=== PATIENT | female | born 1975 | race African-American/Black ===

== ENCOUNTER 2020-10-08 13:03 | Emergency (ER) | payer OTHER, SELFPAY ==
--- NOTE | 2020-10-08 13:17 | ED.SKABFB ---
HPI - Skin/Abscess/Foreign Bdy General Chief complaint: Skin/Abscess/Foreign Body Stated complaint: bump in nose Time Seen by Provider: 10/08/20 13:23 Source: patient and RN notes reviewed Mode of arrival: ambulatory Limitations: no limitations History of Present Illness HPI narrative: 45-year-old female presents with concern for a unusual area in her left nare. She reports several day history of this, denies any drainage, bleeding from the area. Denies any pain, reports it just feels unusual. She denies any recent upper respiratory symptoms, congestion, rhinorrhea. Denies any fever, decreased sense of smell. complaint: abscess/boil Related Data Home Medications Medication Instructions Recorded Confirmed albuterol sulfate [Ventolin HFA] 90 mcg INHALATION PRN PRN 10/08/20 10/08/20 allopurinol 100 mg PO DAILY 10/08/20 10/08/20 aspirin 81 mg PO DAILY 10/08/20 10/08/20 cholecalciferol (vitamin D3) 50 mcg PO DAILY 10/08/20 10/08/20 ferrous sulfate 325 mg PO DAILY 10/08/20 10/08/20 labetalol 200 mg PO DAILY 10/08/20 10/08/20 losartan 100 mg PO DAILY 10/08/20 10/08/20 metformin 1,000 mg PO DAILY 10/08/20 10/08/20 Allergies Allergy/AdvReac Type Severity Reaction Status Date / Time No Known Allergies Allergy Verified 10/08/20 13:24 Review of Systems Review of Systems: Narrative: CONSTITUTIONAL: Denies malaise, chills, sweats, or fever. EYES: Denies visual changes, redness, or discharge. ENT: Denies rhinorrhea, congestion, sinus pain, otalgia or sore throat. SKIN: Denies open skin, rash or itching. NEUROLOGIC: Denies headache. All systems reviewed & are unremarkable except as noted in HPI and below PMFSH Social History Social History Gender identity (if verbalized by the patient): Female Comments At time of signature, agree with nursing past medical, surgical, social and family history. There is no relevant family history pertinent to the presenting complaint Exam Narrative: Exam Narrative: GENERAL: Well-appearing, well-nourished, and in no acute distress. HEAD: Normocephalic, atraumatic. EYES: PERRLA, conjunctivae clear ENT: Nares patent, turbinates pink, no rhinorrhea or epistaxis; small white ulceration without drainage, edema, induration noted on the outer edge of the inside of the left nare. Mucous membranes moist. NECK: Supple. CHEST: No respiratory distress. Speaks in full sentences. HEART: Regular rate and rhythm. SKIN: Warm, dry, no rash. NEURO: Alert and oriented x3. PSYCH: Normal mood and affect Course Course Emergency Course: Patient is aware of diagnosis, understands and agrees to treatment plan. Anticipatory guidance given. Patient agrees to follow-up as directed and is aware of reasons to seek care at the emergency department. Portions of this record may have been created with voice recognition software Vital Signs Vital signs: Vital Signs Temperature 99.1 F 10/08/20 13:19 Pulse Rate 101 H 10/08/20 13:19 Respiratory Rate 16 10/08/20 13:19 Blood Pressure 177/105 H 10/08/20 13:19 Pulse Oximetry 98 10/08/20 13:19 Temperature 99.1 F 10/08/20 13:19 Pulse Rate 101 H 10/08/20 13:19 Respiratory Rate 16 10/08/20 13:19 Blood Pressure 177/105 H 10/08/20 13:19 Pulse Oximetry 98 10/08/20 13:19 Reviewed. Patient has history of hypertension, reports she has not been taking her medication. Patient Acacian regarding medication adherence MDM - Skin/Abscess/Foreign Bdy MDM Narrative Medical decision making narrative: Exam findings and imaging show no acute concerns or changes; patient is non-toxic appearing and is in no distress. Patient is appropriate for outpatient treatment and follow-up. Critical Care Time Critical Care Time Critical Care Time: No Discharge Plan Discharge Clinical Impression: Nasal ulcer Patient Disposition: Home, Self-Care Condition: Stable Additional Instructions: 1) Please follow-up with your primary care doctor if your sympt
[2020-10-08 13:19] VITALS: BP 177/105; PULSE 101; RESP 16; TEMP 37.3; O2SAT 98
== END 2020-10-08 13:35 | disposition home or self-care (01) ==
PROVIDERS: Emergency Provider Nurse Practitioner; PCP Internal Medicine Infectious Disease
DX: J34.0 Abscess, furuncle and carbuncle of nose (principal); E78.00 Pure hypercholesterolemia, unspecified; I10 Essential (primary) hypertension; J45.909 Unspecified asthma, uncomplicated; E11.9 Type 2 diabetes mellitus without complications
CPT/HCPCS: 99203; G0463

== ENCOUNTER 2021-11-13 17:15 | Emergency (ER) | payer BC, SELFPAY ==
--- NOTE | ~2021-11-13 | XR_ITS ---
XR cervical spine 4-5V DATE: 11/13/2021 17:49 INDICATION: Left neck pain. No injury. TECHNIQUE: AP, open-mouth, odontoid, lateral and swimmer views COMPARISON: None FINDINGS: There is straightening of cervical spine which may be due to muscle spasm. C1 and C2 are normally aligned and the odontoid process is intact. There is prominent anterior spurri ng at C2-3, C3-4 and C4-5, but the cervical interspaces are relatively well preserved. There is minimal anterolisthesis at C4-5. No fracture or dislocation or locked facet or prevertebral soft tissue swelling. The sella turcica is normal. IMPRESSION: Straightening of the cervical spine which may be due to muscle spasm Minimal anterolisthesis at C4-5 Prominent anterior spurring in the upper and mid cervical spine Reviewed, dictated and finalized at location A. DOCUMENTATION IMPRESSION: Straightening of the cervical spine which may be due to muscle spas m Minimal anterolisthesis at C4-5 Prominent anterior spurring in the upper and mid cervical spine
[2021-11-13 17:28] VITALS: BP 166/88; PULSE 101; RESP 16; TEMP 36.7; O2SAT 100
--- NOTE | 2021-11-13 17:28 | ED.GENADULT ---
HPI - General Adult General Chief complaint: Neck Pain/Injury Stated complaint: neck pain Time Seen by Provider: 11/13/21 17:28 Source: patient, RN notes reviewed and old records reviewed Mode of arrival: ambulatory Limitations: no limitations History of Present Illness HPI narrative: 46 year old female presents to [facility] care with complaints of 3 week duration of left sided neck pain with no known injury or trauma known. Patient states that her discomfort is intermittent, she has associated headache at times with neck pain, denies any radiation of pain to left arm or any tingling or numbness to left extremity or face. Patient reports no prior treatment for her neck pain. MD complaint: neck pain Onset (ago): week(s) (3) Related Data Home Medications Medication Instructions Recorded Confirmed albuterol sulfate [Ventolin HFA] 90 mcg INHALATION PRN PRN 10/08/20 10/08/20 allopurinol 100 mg PO DAILY 10/08/20 10/08/20 aspirin 81 mg PO DAILY 10/08/20 10/08/20 cholecalciferol (vitamin D3) 50 mcg PO DAILY 10/08/20 10/08/20 ferrous sulfate 325 mg PO DAILY 10/08/20 10/08/20 labetalol 200 mg PO DAILY 10/08/20 10/08/20 losartan 100 mg PO DAILY 10/08/20 10/08/20 metformin 1,000 mg PO DAILY 10/08/20 10/08/20 potassium chloride 20 meq PO DAILY 10/08/20 10/08/20 amlodipine 11/13/21 atorvastatin 11/13/21 hydrochlorothiazide 11/13/21 Allergies Allergy/AdvReac Type Severity Reaction Status Date / Time No Known Allergies Allergy Verified 10/08/20 13:24 Review of Systems Review of Systems: CONSTITUTIONAL: Denies fever, chills, or sweats. EYES: Denies visual changes, redness, or discharge. ENT: Denies rhinorrhea, congestion, sore throat, or otalgia. CARDIOVASCULAR: Denies chest pain, palpitations, or edema. RESPIRATORY: Denies cough or dyspnea. GASTROINTESTINAL: Denies abdominal pain, nausea, vomiting, or diarrhea. GENITOURINARY: Denies dysuria or hematuria. SKIN: Denies rash or itching. MUSCULOSKELETAL: Denies back pain,intermittent pain to left posterior lateral neck, or myalgia. NEUROLOGIC: intermittent headache,no numbness, or weakness. PSYCHIATRIC: Denies anxiety or depression. All systems reviewed & are unremarkable except as noted in HPI and below PMFSH Past Medical History Medical History (Updated 11/13/21 @ 18:27 by Trinh Hernandez NP) Arthritis Diabetes Elevated cholesterol Hypertension Surgical History Surgical History (Updated 11/13/21 @ 17:46 by Trinh Hernandez NP) History of weight loss surgery Hx of cholecystectomy Previous section Family History Family History (Updated 11/13/21 @ 17:47 by Trinh Hernandez NP) Mother Hypertension Grandparent Heart disease Other Breast cancer Social History Social History (Updated 11/13/21 @ 17:48 by Trinh Hernandez NP) Smoking status: Never smoker Alcohol intake: never Substance use: never Living arrangements: with family Gender identity (if verbalized by the patient): Female Comments At time of signature, agree with nursing past medical, surgical, social and family history. There is no relevant family history pertinent to the presenting complaint Exam Narrative: GENERAL: Well-appearing, well-nourished, and in no acute distress. HEAD: Normocephalic, atraumatic. EYES: PERRLA and EOMI. ENT: Nares clear, no rhinorrhea or epistaxis. Mucous membranes moist.TM's normal with good light reflex, throat pink with no lesions,exudates or tonsil enlargement. NECK: Supple.full ROM noted, intermittent pain left posterior lateral neck with no radiation to extremity or face, no tingling or numbness stated with strong pulses to left arm and equal temporal pulses present. CHEST: Clear to auscultation. No respiratory distress.SAO2 100% on room air. HEART: Regular rate and rhythm. No murmur heard. Normal peripheral pulses. ABDOMEN: Soft, nontender, nondistended, normal active bowel sounds. EXTREMITIES: Normal range of motion. No edema. SKIN: Warm,
== END 2021-11-13 18:33 | disposition home or self-care (01) ==
PROVIDERS: Emergency Provider Registered Nurse
DX: M54.2 Cervicalgia (principal); E78.00 Pure hypercholesterolemia, unspecified; I10 Essential (primary) hypertension; J45.909 Unspecified asthma, uncomplicated; E11.9 Type 2 diabetes mellitus without complications
CPT/HCPCS: 72050; 99213; G0463